=== PATIENT | female | born 2000 | race Caucasian/White ===

== ENCOUNTER 2022-11-02 14:30 | Outpatient (CLI) | payer BC | END 2022-11-02 15:55 | disposition home or self-care (01) | LOC: LAB.N 14:30 | PROVIDERS: ATTEND Physician Assistant Medical | DX: Z02.1 Encounter for pre-employment examination (principal) | CPT/HCPCS: 81599; 86480 ==

== ENCOUNTER 2023-01-19 05:41 | Outpatient (CLI) | payer BC | END 2023-01-19 23:59 | disposition critical access hospital (66) | LOC: EMS 05:41 | DX: R55 Syncope and collapse (principal); R11.0 Nausea; R53.83 Other fatigue | CPT/HCPCS: A0425; A0427 ==

== ENCOUNTER 2023-01-19 05:56 | Emergency (ER) | payer BC ==
--- NOTE | 2023-01-19 06:44 | ED Physician Documentation ---
History of Present Illness - Stated complaint Stated Complaint: SYNCOPE, NAUSEA, DIZZY - Chief complaint Chief Complaint: Cardiac - History obtained from History obtained from: Patient, Family (friend of the family) - Additonal information Additional information: 22yF, previously healthy, p/w syncopal episode this morning. patient's sister is ill with a stomach virus and had to go to [facility] in [place] and patient states she was feeling anxious about this, then felt a wave of nausea and sudden dizziness before her vision went black. Their family friend states the patient's mother told her the patient was rigid for several moments afterwards and grinding her teeth before coming back to consciousness. there was no fecal or urinary incontinence or tongue biting. patient herself states she feels normal now aside from some nausea. she believes she herself may have caught the same illness as her sister. endorses some loose stools but denies fever, vomiting, abd pain, urinary sx. Review of Systems Constitutional: denies: Fever Cardiac: denies: Chest pain / pressure Respiratory: denies: Dyspnea GI: reports: Nausea, Diarrhea. denies: Abdominal Pain, Vomiting, Constipation PD PAST MEDICAL HISTORY - Past Medical History Past Medical History: No - Past Surgical History Past Surgical History: No - Present Medications Home Medications: Ambulatory Orders Medication Instructions Recorded Confirmed Ondansetron Odt [Zofran Odt] 4 mg TL Q6H PRN #10 tablet 01/19/23 - Allergies Allergies/Adverse Reactions: Allergies Allergy/AdvReac Type Severity Reaction Status Date / Time No Known Drug Allergies Allergy Verified 01/19/23 06:11 - Social History Does the pt smoke?: No Smoking Status: Never smoker Does the pt drink ETOH?: No Does the pt have substance abuse?: No - Immunizations Immunizations are current?: Yes - POLST Patient has POLST: No PD ED PE NORMAL - Vitals Vital signs reviewed: Yes - General General: Alert and oriented X 3, No acute distress, Well developed/nourished - HEENT HEENT: Atraumatic, PERRL, EOMI, Moist mucous membranes, Pharynx benign - Neck Neck: Supple, no meningeal sign - Cardiac Cardiac: RRR - Respiratory Respiratory: No respiratory distress, Clear bilaterally - Abdomen Abdomen: Non tender, Non distended - Derm Derm: Normal color, Warm and dry - Extremities Extremities: No deformity - Neuro Neuro: Alert and oriented X 3, reference investigator 2-12 intact, No motor deficit, No sensory deficit, Normal speech Eye Opening: Spontaneous Motor: Obeys Commands Verbal: Oriented GCS Score: 15 - Psych Psych: Normal mood, Normal affect Results - Vitals Vitals: Vital Signs - 24 hr 01/19/23 01/19/23 06:02 06:11 Temperature 35.7 C L Heart Rate 74 68 Respiratory 9 L 15 Rate Blood Pressure 107/58 L 107/58 L O2 Saturation 100 100 Oxygen O2 Source Room air - EKG (time done) 0633 EKG releavant findings:: EKG personally interpreted by author of this note. Relevant findings are: Rate: Rate (enter#) (69) Rhythm: NSR [place]: Normal Intervals: Normal [place] QRS: Normal Ischemia: Normal ST segments - Labs Labs: Laboratory Tests 01/19/23 06:44 POC Whole Bld Glucose 104 H PD Medical Decision Making - ED course ED course: 22yF presents with syncopal episode this morning with preceding symptoms. fingerstick normal. ekg NSR without acute findings of concern. discussed need for hydration and rest. plan to f/u with pcp . return precautions given. Departure - Departure Disposition: 01 Home, Self Care Clinical Impression: Nausea, Syncope Condition: Good Instructions: ED Syncope Vasovagal Prescriptions: Ondansetron Odt [Zofran Odt] 4 mg TL Q6H PRN #10 tablet PRN Reason: Nausea / Vomiting Comments: You were seen in the ED after an episode of syncope. Your vital signs and exam were normal in the ED, but you may be coming down with a stomach virus and should make sure to stay well hydrated. I am sending a Prescription for Zofran, and antinausea medicine, to your [facility] in [place] electronically. Please follow-up with your primary care provider as well. Return to the emergency department if you experience new or worsening symptoms or have other concerns.
[2023-01-19] MEDS ORDERED: ONDANSETRON ODT 4 MG Prepack 2 TL PRN (07:04)
[2023-01-19 07:39] VITALS: BP 120/74
== END 2023-01-19 07:39 | disposition home or self-care (01) ==
LOC: EDUNIT# → ED 05:56
DX: R55 Syncope and collapse (principal); R11.0 Nausea
CPT/HCPCS: 93005; 99283; 99284